=== PATIENT | female | born 1970 | race Caucasian/White ===

== ENCOUNTER 2019-11-18 07:43 | Day surgery (SDC) | payer OTHER ==
[~2019-11-18] VITALS: Ht 161.3 cm; Wt 60.6 kg
[2019-11-18 08:14] VITALS: BP 116/68; PULSE 53; TEMP 97.8
[2019-11-18] MEDS ORDERED: SYNTHROID0.112 MG/T PO (08:17)
[2019-11-18] MEDS ORDERED: ASPIRIN 32325 MG/TAB PO (08:18)
[2019-11-18] MEDS ORDERED: VITAMIN D31000 I1 PO (08:19)
--- NOTE | 2019-11-18 08:22 | NUR ---
PATIENT STATED SHE IS FEELING BETTER CALL LIGHT IN REACH AT BEDSIDE
[2019-11-18 10:00] VITALS: BP 104/57; PULSE 51
--- NOTE | 2019-11-18 10:00 | NUR ---
Patient arrives to [facility] via cart, accompanied by Endo RN Chel. She is alert and oriented, sitting up in bed. She ambulates with standby assist and steady gait to chair in room. Monitoring applied - VSS and WNL on room air. She denies pain or nausea. Offered and receives juice and coffee to drink. Does not want solid food at this time. Son at the bedside. Call light in reach.
[2019-11-18 10:15] VITALS: BP 111/60; PULSE 45; TEMP 97.7
--- NOTE | 2019-11-18 10:15 | NUR ---
Patient is resting comfortably in room. Denies any pain, nausea, or need.
[2019-11-18 10:30] VITALS: BP 102/79; PULSE 48
--- NOTE | 2019-11-18 10:47 | NUR ---
Patient has met discharge criteria. Discharge instructions discussed, denies any questions, and verbalizes understanding. PIV removed with catheter intact and hemostasis achieved. Escorted to exit via wheelchair. Discharged to home with ride in private vehicle at 1047.
== END 2019-11-18 10:47 | disposition home or self-care (01) ==
LOC: SDCO 07:43
DX: Z12.11 Encounter for screening for malignant neoplasm of colon (principal); F32.9 Major depressive disorder, single episode, unspecified; H93.19 Tinnitus, unspecified ear; E03.9 Hypothyroidism, unspecified; Z88.0 Allergy status to penicillin
CPT/HCPCS: J2704; J7120

== ENCOUNTER → 2022-08-27 | Outpatient (CLI) | payer OTHER ==
[~2022-08-27] MED LIST: ASPIRIN 32325 MG/TAB PO; SYNTHROID0.112 MG/T PO; VITAMIN D31000 I1 PO
== END ==
LOC: MC.RAD 08:35
DX: Z12.31 Encounter for screening mammogram for malignant neoplasm of breast (principal)